=== PATIENT | male | born 1930 | race Caucasian/White ===

== ENCOUNTER 2017-05-23 07:40 | Emergency (ER) | payer BC, MEDICARE ==
[2017-05-23 08:34] LABS: INR-International Normal Ratio 3.2; Prothrombin Time 33.8 SEC (12.0-14.7)
[2017-05-23] MEDS ORDERED: Triple Antibiotic Oint 1 GM Packet ONE (08:34)
--- NOTE | 2017-05-23 08:48 | RAD ---
LEFT KNEE 4 VIEWS: INDICATION: Posttraumatic pain. 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 Chondrocalcinosis is seen. No acute fracture. Prominent superior patella enthesophyte formation is present. There is linear soft tissue calcification involving the medial and posterior partially visualized pro ximal left leg. IMPRESSION: 1. No acute osseous abnormality. 2. Incomplete visualization of proximal left leg calcification which may relate to entity such as my ositis ossificans, although it is not further characterized on the basis of this exam. POS: [facility]
== END 2017-05-23 09:00 | disposition home or self-care (01) ==
LOC: MADERS 07:40
DX: S80.02XA Contusion of left knee, initial encounter (principal); S70.12XA Contusion of left thigh, initial encounter; L03.116 Cellulitis of left lower limb; I10 Essential (primary) hypertension; Z79.01 Long term (current) use of anticoagulants; Z79.899 Other long term (current) drug therapy; W01.0XXA Fall on same level from slipping, tripping and stumbling without subsequent striking against object, initial encounter
CPT/HCPCS: 36415; 85610